=== PATIENT | female | born 1995 | race Caucasian/White ===

== ENCOUNTER 2017-01-08 16:59 | Emergency (ER) | payer MEDICAID ==
[~2017-01-08 16:59] MED LIST: BACITRACIN1 G1 EXT; BACTRIM DS TAB1 EACH PO; CELEXA20 M2 PO; CELEXA40 M2 PO; DICYCLOMINE HCL20 M1 PO; FERROUS SULFAT325 MG PO; IBUPROFEN800 M1 PO; KEFLEX500 M2 PO; MIRALAX17 GM PO; NO MEDS; NORCO 5-325 TA1 EACH PO; PANTOPRAZOLE SO40 M3 PO; PREDNISONE20 MG PO; PRENATAL1 EACH PO; PRISTIQ ER50 MG PO; PROVENTIL HFA6.7 G1 IH; RITALIN-SR20 MG PO; TOPAMAX25 M2 PO; TRAZODONE HCL50 M1 PO; WELLBUTRIN100 M2 PO; ZOFRAN4 M2 PO
[2017-03-19] MEDS ORDERED: TRILEPTAL300 M2 PO (14:40)
[2017-03-19] MEDS ORDERED: LILETTA1 EACH IL (14:41)
[2017-03-19] MEDS ORDERED: MACROBID 100 M100 M1 PO (15:39)
== END 2017-01-08 18:26 ==
LOC: EDMED 16:59
PROC: 2W3TXYZ Immobilization of Left Foot using Other Device (ICD-10-PCS; principal; 2017-01-08)
DX: S93.402A Sprain of unspecified ligament of left ankle, initial encounter (principal); S93.602A Unspecified sprain of left foot, initial encounter; F32.9 Major depressive disorder, single episode, unspecified; Z79.899 Other long term (current) drug therapy; F17.200 Nicotine dependence, unspecified, uncomplicated; X50.1XXA Overexertion from prolonged static or awkward postures, initial encounter

== ENCOUNTER 2017-04-05 18:39 | Emergency (ER) | payer MEDICAID ==
[~2017-04-05] VITALS: Ht 160 cm; Wt 79.4 kg
[~2017-04-05 18:39] MED LIST changes: +LILETTA1 EACH IL; +MACROBID 100 M100 M1 PO; +TRILEPTAL300 M2 PO
[2017-04-05] MEDS ORDERED: ZOFRAN4 M2 PO (19:10)
[2017-04-05] MEDS ORDERED: HYDROCODON-ACE1 EA16 PO (19:10)
[2017-04-05 20:03] LABS: BASO % 0.4 % (0-2); EOS % 5.1 % (0-7); EOSINOPHIL ABSOLUTE COUNT 0.6 tho/cmm (0.0-0.7); HCT-HEMATOCRIT 40.5 % (34.0-49.0); HGB-HEMOGLOBIN 14.2 gm/dl (12.0-15.5); IMMATURE GRANULOCYTES ABSOLUTE 0.02 tho/cmm (0-0.03); IMMATURE GRANULOCYTES PERCENT 0.2 % (0-0.3); LYMPH % 23.8 % (20-45); LYMPH ABSOLUTE COUNT 2.6 tho/cmm (0.8-4.5); MCH (MEAN CORPUSCULAR HGB) 30.5 pg (28.0-32.0); MCHC MEAN CORPUSCULAR HGB CONC 35.1 % (32.0-36.0); MCV (MEAN CELL VOLUME) 87.1 fl (82.0-96.0); MEAN PLATELET VOLUME 10.3 cmc (9.4-12.4); MONO % 5.5 % (0-12); MONOCYTE ABSOLUTE COUNT 0.6 tho/cmm (0.0-1.2); NEUTROPHIL ABSOLUTE COUNT 7.1 tho/cmm (1.6-8.0); NEUTROPHIL-AUTOMATED 7.1 tho/cmm (1.6-8.0); PLATELET COUNT 308 tho/cmm (150-450); RED BLOOD COUNT 4.65 mil/cmm (4.00-5.20); RED CELL DISTRIBUTION WIDTH 12.7 % (12.4-16.4); WHITE BLOOD COUNT 10.8 tho/cmm (4.0-10.0)
[2017-04-05 20:15] LABS: PREGNANCY-SERUM NEGATIVE (NEGATIVE)
[2017-04-05 20:44] LABS: ALB/GLOB RATIO 1.1 (0.8-2.0); ALBUMIN 3.9 g/dl (3.5-5.0); ALKALINE PHOSPHATASE 79 U/L (60-225); ALT/SGPT 30 U/L (12-78); BILIRUBIN,TOTAL 0.3 mg/dl (0-1.5); BLOOD UREA NITROGEN 10 mg/dl (6-24); CALCIUM 8.7 mg/dl (8.5-10.5); CARBON DIOXIDE-VENOUS 20 mmol/L (22-32); CHLORIDE 111 mmol/l (96-110); CREATININE 0.68 mg/dl (0.50-1.10); GLUCOSE 106 mg/dL (70-110); SODIUM 140 mmol/L (135-145); eGFR VALUE FOR BLACK >90 mL/Min
[2017-04-05 20:48] LABS: ANION GAP 14 mmol/L (0-20); POTASSIUM 4.8 mmol/L (3.7-5.1)
[2017-04-05 20:49] LABS: AST/SGOT 40 U/L (10-40)
[2017-04-05 20:50] LABS: URINE APPEARANCE CLOUDY; URINE BILIRUBIN NEGATIVE (NEG); URINE BLOOD MODERATE (NEG); URINE COLOR YELLOW; URINE GLUCOSE (UA) NEGATIVE (NEG); URINE KETONE NEGATIVE (NEG); URINE LEUKOCYTE ESTERASE POSITIVE (NEG); URINE NITRITE POSITIVE (NEG); URINE PROTEIN MODERATE (NEG); URINE SPECIFIC GRAVITY 1.015 (1.003-1.030)
[2017-04-05 21:07] LABS: URINE BACTERIA 4+; URINE EPITHELIAL CELLS 0-2 /[HPF] (0-10); URINE WBC 20-25 /[HPF] (0-5)
[2017-04-05] MEDS ORDERED: AUGMENTIN 875-1 EAC2 PO (21:22)
== END 2017-04-05 21:34 ==
LOC: EDMED 18:39
PROVIDERS: Emergency Medicine
DX: N39.0 Urinary tract infection, site not specified (principal); K21.9 Gastro-esophageal reflux disease without esophagitis; J45.909 Unspecified asthma, uncomplicated; F31.9 Bipolar disorder, unspecified; F17.200 Nicotine dependence, unspecified, uncomplicated; Z90.89 Acquired absence of other organs; Z79.899 Other long term (current) drug therapy
CPT/HCPCS: J2765